=== PATIENT | male | born 2000 | race African-American/Black ===

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

== ENCOUNTER 2024-04-05 16:21 | Emergency (ER) | payer OTHER, SELFPAY ==
[~2024-04-05 16:21] MED LIST: Iopamidol-370 76% 500 ML MDV (1 ML CHARGE) ONE
[2024-04-05] MEDS ORDERED: Acetaminophen 325 MG (10.15 ML) UDCUP ONE ×2 (16:56→16:59)
[2024-04-05] MEDS ORDERED: cefTRIAXone (ROCEPHIN) 1 GM VIAL ONE (18:37)
[2024-04-05] MEDS ORDERED: Dexamethasone 10 MG/ML VIAL ONE (18:37)
[2024-04-05] MEDS ORDERED: Sodium Chloride 0.9% 100 ML ONE (18:38)
== END 2024-04-05 19:11 | disposition home or self-care (01) ==
LOC: ERS 16:21
DX: J36 Peritonsillar abscess (principal); F17.210 Nicotine dependence, cigarettes, uncomplicated
CPT/HCPCS: 70491; 87081; 87430; 96374; 96375; J0696; J1100; J3490; Q9967

== ENCOUNTER 2025-05-09 20:50 | Emergency (ER) | payer OTHER, SELFPAY ==
[2025-05-09] MEDS ORDERED: Ibuprofen 200 MG TAB ONE ×2 (23:08→23:16)
== END 2025-05-09 23:22 | disposition home or self-care (01) ==
LOC: ERS 20:50
DX: K02.9 Dental caries, unspecified (principal); K03.81 Cracked tooth
CPT/HCPCS: 99282